=== PATIENT | female | born 1995 | race Caucasian/White ===

== ENCOUNTER 2023-07-02 20:56 | Emergency (ER) | payer MEDICAID, SELFPAY ==
[2023-07-02 20:56] VITALS: BP 138/103; PULSE 127; RESP 16; TEMP 36.9; O2SAT 97; BMI 39.9
--- NOTE | 2023-07-02 21:53 | EDS_ITS ---
HPI History of Present Illness Chief Complaint: General Illness Detail of Chief Complaint: Upper respiratory tract infectious symptoms and myalgias Informant: patient Onset/Context/Timing Onset: Today (Became flushed diaphoretic and was warm while at work) and Weeks Context: - (Varies) Timing: Continuous Quality: Upper respiratory infectious symptoms Location: Respiratory Current Severity: Mild Maximum Severity: Moderate Worsened by: Nothing Relieved by: nothing Associated Symptoms Associated Symptoms: Diaphoresis, flushed sensation, aches Narrative Narrative: Patient is a 28-year-old female who was diagnosed with COVID 2 weeks ago. She has been around her mother who was recently diagnosed with influenza. She has had persistent respiratory symptoms since onset of COVID. She now reports myalgias arthralgias, subjective fever with chills and being flushed and sweaty while at work. She was sent in by her boss. 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 She does complain of headache. She denies photophobia. She denies ear pain. She does endorse congestion and sore throat. She does have a cough which is nonproductive. She denies dyspnea, dyspnea on exertion. She denies abdominal pain, nausea, vomit or diarrhea. She denies dysuria, frequency, urgency or hematuria. She denies any joint swelling. She denies rash. Prior similar symptoms: Yes (Diagnosed with COVID 2 weeks ago. She is no longer in restriction) Recent Illness/Hospitalization: Yes [facility] Medical History Physical exam, pre-employment Allergy/AdvReac Type Severity Reaction Status Date / Time No Known Allergies Allergy Verified 07/02/23 20:59 Social History (Updated 07/02/23 @ 21:[address] Mohamud Castro MD) household members: spouse Smoking Status: Never smoker substance use type: does not use ROS ROS ED Constitutional Constitutional ED: Reports chills, fever(s), subjective and sweats; Denies weight loss Eyes Eyes: Denies blurry vision, change in vision or diplopia ENT ENT ED: Reports sore throat; Denies ear pain or rhinorrhea Cardiovascular Cardiovascular: Denies chest pain, orthopnea, palpitations or paroxysmal nocturnal dyspnea Respiratory/Chest Respiratory/Chest: Reports cough; Denies dyspnea, dyspnea on exertion, orthopnea, paroxysmal nocturnal dyspnea or sputum Gastrointestinal Gastrointestinal: Denies abdominal pain, diarrhea, nausea or vomiting Genitourinary Genitourinary ED: Denies dysuria, hematuria or urinary frequency Musculoskeletal Musculoskeletal: Reports myalgias; Denies arthralgias, back pain or neck pain Integumentary Denies rash Neurologic Neurologic: Reports weakness; Denies headache(s) Hematologic/Lymphatic Hematologic/Lymphatic: Reports systems reviewed and no addt'l complaints, except as documented EXAM Physical Exam Const Vital Signs: 07/02/23 20:56 07/02/23 20:56 Temperature 98.4 F Temperature Source Temporal Pulse Rate 127 H Respiratory Rate 16 Respiratory Effort Short of Breath Respiratory Pattern Normal Blood Pressure 138/103 H Blood Pressure Mean 114 Pulse Ox 97 Oxygen Delivery Method Room Air Positive well nourished, well developed and obese Constitutional Narrative: Patient appears ill but not toxic. General Appearance ED: well developed and pallor; Negative for cyanotic, diaphoretic or NAD Nutritional Appearance: obese HEENT Reports dry mucous membranes HEENT Narrative: Head is atraumatic and normocephalic. Ears normal. External auditory canal normal. TMs normal. Nares patent with clear discharge. Posterior pharynx out erythema or exudate. Mouth ED: Yes dry mucous membranes Mouth: dry mucous membranes Eyes PERRL and EOMs intact bilaterally General Eye ED: Negative for pale conjunctiva or scleral icterus Neck no lymphadenopathy, supple and no JVD Neck Narrative: Trachea is midline. There is no stridor. There is no dysphonia. Chest Wall palpation of chest normal Resp normal respiratory effort and clear to auscultation bilaterally Cardio regular rhythm, S1 normal heart sound, S2 normal heart sound and no murmurs Rate: tachycardic GI normal to inspection, nondistended, normoactive bowel sounds, non-tender, non- distended and no masses; Negative for hepatosplenomegaly Back/Spine no CVA tenderness Thoracic Spine / Upper Back: Negative for thoracic spinal tenderness Lumbar Spine / Lower Back: Negative for lumbar spinal tenderness Extremity normal to inspection Extremity Narrative: There is no asymmetry, swelling, discoloration, leg vein distention, palpable cords or tenderness along the distribution of the deep venous system. Neuro oriented x3, CN's II-XII intact bilaterally and no sensory deficits noted Sensorium / Orientation: alert Psych mental status grossly normal Skin no rashes or lesions noted, no wounds and skin turgor normal General Skin Exam: elasticity normal and pallor; Negative for jaundice MDM MDM MDM Narrative Medical decision making narrative: Patient appears ill and clinically is dehydrated. 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 IV fluids ordered. Basic metabolic panel was obtained to assess electrolytes, glucose, anion gap and renal function since she reports poor p.o. intake for the past week or so since she has been ill prior to this episode. History & Record Review Additional record(s) reviewed:: Prior labs (Preemployment TB testing) and No prior records Lab Data Attestation: I reviewed the patient's lab results. Lab results narrative: Basic metabolic panel is unremarkable. Sodium is 135. Labs: Laboratory Results - last 24 hr 07/02/23 22:00 Sodium 135 L Potassium 4.0 Chloride 107 Carbon Dioxide 24.0 Anion Gap 4 L BUN 14 Creatinine 0.76 Estim Creat Clear Calc 152.39 Est GFR (MDRD) Af Amer 118 Est GFR (MDRD) Non-Af 97 BUN/Creatinine Ratio 18.4 Glucose 99 Calcium 9.1 Treatment and Re-Evaluation :: Patient was reassessed at 0301. She had marked improvement after Toradol. Discharged home with work excuse. Discharge Plan Triage Chief Complaint: General Illness ED Provider: Mohamud Castro Dx/Rx/DC Orders Clinical Impression: COVID-19 virus infection, Myalgia due to viral infection Stand Alone Forms: ED Work / School Excuse Primary Care Provider: Sherwin Zarate Referrals: Sherwin Zarate DO [Primary Care Provider] - 1 Week if not improving Disposition Disposition: Home, Self Care
[2023-07-02] MEDS: 0.9% Normal Saline (1000mL) 1,000 ML 1000 ML IV (22:00)
[2023-07-02 22:24] LABS: Anion Gap 4 (5-15); BUN 14 mg/dL (7-18); BUN/Creat Ratio 18.4 RATIO (10-20); Calcium,Total 9.1 mg/dL (8.5-10.1); Chloride 107 mmol/L (98-107); Creatinine, Serum 0.76 mg/dL (0.55-1.02); EST Glomerular Filtration Rate 97 mL/min (>60); Est Glom Filt Rate - Afr Amer 118 mL/min (>60); Estimated Creatinine Clearance 152.39 ml/min; Glucose 99 mg/dL (74-106); Sodium Level 135 mmol/L (136-145)
--- OUTSIDE RECORDS SUMMARY | 2023-07-02 22:33 | XMS RPT_ITS | CCD ---
Author Name Unknown Address [address] [facility] [address] [place] [address] Organization [facility] Care Team Providers Care Coyote Hunter Name Role Phone Bethel Kent (Hist) Primary Care Provider AUGUSTA DUENAS DO Primary Care Physician Bethel Kent (Hist) Primary Care Provider 1( [phone] MANJULA TENORIO Attending Unavailable NATALY PRETTY Attending Unavailable AUGUSTA DUENAS DO Primary Care Unavailable AUGUSTA DUENAS DO Primary Care Unavailable AUGUSTA DUENAS DO Attending Unavailable AUGUSTA DUENAS DO Primary Care Unavailable AUGUSTA DUENAS DO Attending Unavailable AUGUSTA DUENAS DO Attending Unavailable AUGUSTA DUENAS DO Primary Care Unavailable AUGUSTA DUENAS DO Primary Care Unavailable AUGUSTA DUENAS DO Attending Unavailable AUGUSTA DUENAS DO Primary Care Unavailable AMBROSE BETTS DO Attending Unavailable AUGUSTA DUENAS DO Primary Care Unavailable TEE LYNNE DO Attending Unavailable AUGUSTA DUENAS DO Primary Care Unavailable NENA RAMIREZ, DR MCKINNEY Attending Unavailabl e Medications Current Medications Medication Drug Class(es) Dates Sig (Normalized) Sig (Original) acetaminophen 325 mg / HYDROcodone bitartrate 5 mg oral tablet (2 sources) Opioid Agonist Start: 10-10-2021 End: 10-13-2021 acetaminophen-hyd rocodone 325 mg-5 mg oral tablet Dose = 1 tab(s), Oral, q6h, PRN for pain, May take 1-2 tablets / dose, # 12 tab(s), 0 Refill(s), 112.6 Start Date: 10/13/21 Status: Ordered albuterol MDI (90 mcg/inh) CFC free inhalation aerosol (4 sources) Start: 12-07-2022 take 2 puff(s) by inhalation every four hours as needed albuterol MDI (90 mcg/inh) CFC free inhalation aerosol See Instructions, 2 puff(s) Inhalation q4h as needed, # 6.7 gram(s), 3 Refill(s), Pharmacy: [id number], 172.7, cm, 12/07/22 9:51:00 EDT, Height, kg, 12/07/22 9:51:00 EDT, Dosing Weight Start Date: 12/07/22 Status: Ordered Completed/Discontinued Medications Medication Drug Class(es) Dates Sig (Normalized) Sig (Original) [id number] 200 actuat albuterol 0.09 mg/actuat metered dose inhaler (1 source) beta2-Adrenergic Agonist Start: 12-07-2022 albuterol HFA (PROVENTIL HFA, VENTOLIN HFA) 90 mcg/actuation inhaler Inhale 2 Puffs as instructed. 0 12/07/2022 Active Problems Active Problems Problem Classification Problem Date Documented Date Episodic/Chronic Anxiety disorders (4 sources) Generalized anxiety disorder 10-09-2021 Chronic Asthma (4 sources) Asthma 03-21-2019 Chronic Biliary tract disease (5 sources) Calculus of bile duct; Translations: [Calculus of bile duct without cholangitis or cholecystitis without obstruction] Onset: 10-10-2021 Episodic Contraceptive and procreative management (4 sources) Oral contraception 09-14-2018 Episodic Genitourinary symptoms and ill-defined conditions (4 sources) Disorder of the urinary system; Translations: [Other symptoms and signs involving the genitourinary system] Onset: 12-30-2022 12-30-2022 Episodic Headache; including migraine (4 sources) 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 Headache; including migraine (4 sources) Headache 03-21-2019 Episodic Malaise and fatigue (4 sources) Fatigue 10-09-2021 Episodic Nutritional deficiencies (4 sources) Vitamin D deficiency 08-10-2019 Chronic Other female genital disorders (3 sources) Vaginal discharge 08-10-2019 Episodic Other nervous system disorders (4 sources) Poor concentration 03-21-2019 Chronic Other nutritional; endocrine; and metabolic disorders (4 sources) Body mass index 30+ - obesity 09-23-2017 Chronic Sprains and strains (1 source) Sprain of wrist and/or hand; Translations: [Sprain of unspecified part of unspecified wrist and hand, initial encounter] Onset: 02-11-2023 Episodic Thyroid disorders (6 sources) Hypothyroidism; Translations: [Hypothyroidism, unspecified] Onset: 03-16-2023 10-09-2021 Chronic Unclassified (1 source) Patient encounter status 03-06-2022 Urinary tract infections (4 sources) Urinary tract infectious disease 05-09-2019 Episodic Past or Other Problems Problem Classification Problem Date Documented Date Episodic/Chronic Abdominal pain (4 sources) Postoperative abdominal pain; Translations: [Pain in pelvis] Onset: 06-05-2022 10-23-2021 Episodic Results Test Name Value Interpretation Reference Range Facil ity Vital Signs Date Time Vital Sign Value Performing Clinician Facility 02-11-2023 00:08-[address] Pressure Cuff Size DR HANK BARRETT MD [facility] 02-11-2023 00:08-[address] HANK BARRETT MD [facility] 02-11-2023 00:08-[address] HANK BARRETT MD [facility] 02-11-2023 00:08-0400 Body height 172.[address] HANK BARRETT MD [facility] 02-11-2023 00:08-0400 Body temperature 97.7 [degF] DR HANK BARRETT MD [facility] 02-11-2023 00:08-0400 Body weight 127.[address] HANK BARRETT MD [facility] 02-11-2023 00:08-0400 Diastolic Blood Pressure Non-Invasive [address] HANK BARRETT MD [facility] 02-11-2023 00:08-0400 Heart rate 102 /min DR HANK BARRETT MD [facility] 02-11-2023 00:08-0400 Reason For Taking VItal Signs DR HANK BARRETT MD [facility] 02-11-2023 00:08-0400 Respiratory rate 20 /min DR HANK BARRETT MD [facility] 02-11-2023 00:08-0400 Systolic Blood Pressure Non-Invasive [address] HANK BARRETT MD [facility] 12-30-2022 16:50-0400 Body temperature 98.1 [degF] Manjula Tenorio DO Work Phone: [facility] 12-30-2022 16:50-0400 Body weight 123.65 kg Manjula Tenorio DO Work Phone: [facility] 12-30-2022 16:50-0400 Diastolic blood pressure 73 mm[Hg] Manjula Tenorio DO Work Phone: [facility] 12-30-2022 16:50-0400 Heart rate 92 /min Manjula Tenorio DO Work Phone: [facility] 12-30-2022 16:50-0400 Respiratory rate 18 /min Manjula Tenorio DO Work Phone: [facility] 12-30-2022 16:50-0400 SaO2% (BldA) [Mass fraction] 97 % Manjula Tenorio DO Work Phone: [facility] 12-30-2022 16:50-0400 Systolic blood pressure 144 mm[Hg] Manjula Tenorio DO Work Phone: [facility] 10-23-2021 02:21-0400 Body temperature 98.24 [degF] JAROCHO JALLOH MD [facility] 10-23-2021 02:21-0400 Body weight 110.6 kg JAROCHO JALLOH MD [facility] 10-23-2021 02:21-0400 Diastolic blood pressure 111 mm[Hg] JAROCHO JALLOH MD [facility] 10-23-2021 02:21-0400 Heart rate 88 /min JAROCHO JALLOH MD [facility] 10-23-2021 02:21-0400 Respiratory rate 16 /min JAROCHO JALLOH MD [facility] 10-23-2021 02:21-0400 Systolic blood pressure 164 mm[Hg] JAROCHO JALLOH MD [facility] 10-13-2021 13:05-0400 Body height 172.7 cm SARA BHAKTA MD [facility] 10-13-2021 13:05-0400 Body weight 112 kg SARA BHAKTA MD [facility] 10-13-2021 13:05-0400 Body weight 37.55 kg/m2 SARA BHAKTA MD [facility] 10-13-2021 13:05-0400 diastolic 7 mm[Hg] SARA BHAKTA MD [facility] 10-13-2021 13:05-0400 Heart rate 94 /min SARA BHAKTA MD [facility] 10-13-2021 13:05-0400 Respiratory rate 16 /min SARA BHAKTA MD [facility] 10-13-2021 13:05-0400 systolic 122 mm[Hg] SARA BHAKTA MD [facility] 10-10-2021 01:54-0400 Diastolic blood pressure 48 mm[Hg] CRYSTAL BARRETT MD [facility] 10-10-2021 01:54-0400 Heart rate 88 /min CRYSTAL BARRETT MD [facility] 10-10-2021 01:54-0400 Respiratory rate 20 /min CRYSTAL BARRETT MD [facility] 10-10-2021 01:54-0400 Systolic blood pressure 120 mm[Hg] CRYSTAL BARRETT MD [facility] 10-10-2021 00:35-0400 Diastolic blood pressure 78 mm[Hg] CRYSTAL BARRETT MD [facility] 10-10-2021 00:35-0400 Heart rate 96 /min CRYSTAL BARRETT MD [facility] 10-10-2021 00:35-0400 Respiratory rate 18 /min CRYSTAL BARRETT MD [facility] 10-10-2021 00:35-0400 Systolic blood pressure 128 mm[Hg] CRYSTAL BARRETT MD [facility] 10-09-2021 21:40-0400 Body temperature 98.6 [degF] CRYSTAL BARRETT MD [facility] 10-09-2021 21:40-0400 Body weight 112.6 kg CRYSTAL BARRETT MD [facility] 10-09-2021 21:40-0400 Diastolic blood pressure 90 mm[Hg] CRYSTAL BARRETT MD [facility] 10-09-2021 21:40-0400 Heart rate 110 /min CRYSTAL BARRETT MD [facility] 10-09-2021 21:40-0400 Respiratory rate 16 /min CRYSTAL BARRETT MD [facility] 10-09-2021 21:40-0400 Systolic blood pressure 143 mm[Hg] CRYSTAL BARRETT MD [facility] Encounters Encounter Date Encounter Type Care Provider Facility Start: 05-20-2023 End: 05-25-2023 ambulatory AUGUSTA DUENAS DO Facility:A Start: 04-27-2023 End: 04-27-2023 Emergency department patient visit AUGUSTA DUENAS DO Facility:A Start: 03-16-2023 End: 03-20-2023 ambulatory AUGUSTA MCCORMACKROBERT JANE Facility:A Start: 03-16-2023 End: 03-20-2023 Encounter for general adult medical examination without abnormal findings AUGUSTA DUENAS DO Facility:A Start: 02-11-2023 End: 02-11-2023 Emergency department patient visit AUGUSTA DUENAS DO Facility:B Start: 02-11-2023 End: 02-11-2023 Emergency department patient visit DR HANK BARRETT MD [facility] Start: 02-02-2023 End: 02-02-2023 Emergency department patient visit AUGUSTA DUENAS DO Facility:A Start: 12-30-2022 End: 12-30-2022 ambulatory MANJULA TENORIO Facility:[id number] Start: 12-30-2022 End: 12-30-2022 Patient encounter procedure Manjula Tenorio DO Work Phone: [facility] Procedures Date Procedure Procedure Detail Performing Clinician Start: 12-30-2022 Iadna chlamydia trac homatis amplified probe tq Manjula Tenorio DO Work Phone: Start: 12-30-2022 Urnls dip stick/tabl et rgnt auto w/o microscopy Manjula Tenorio DO Work Phone: Start: 10-16-2021 Cholecystectomy JAROCHO JALLOH MD Start: 09-23-2017 delivery only CRYSTAL BARRETT MD Plan of Treatment Date Care Activity Detail Author Start: 02-05-2023 Influenza vaccination INFLUENZA (#1) [facility] Start: 12-30-2022 End: 03-01-2023 TRICHOMONAS VAGINALIS NAAT [facility] Work Phone: Immunizations Immunization Date Immunization Notes Care Provider Fa cility 07-30-2021 SARS-CoV-2 (COVID-19 ) [id number] HANK BARRETT MD [facility] Payers Date Payer Category Payer Unknown [id number] 2020 Medicaid [employer] [employer] [place] [employer] [id number] 2020-Present [phone] [place] [id number] Medicaid [id number] 2020 Medicaid [id number] 1997 Unknown [id number] 1997 Unknown [id number] 1997 Unknown [id number] 1997 Unknown [id number] 1997 Unknown [id number] 1997 Unknown [id number] 1997 Unknown [id number] 1997 Unknown [id number] Unknown CLAUDIA RICHARDS PPO [id number] Effective for all dates [phone] [address] [place] [address] PPO [id number] Social History Date Type Detail Facility Tobacco smoking status UTIS Tobacco smoking consumption unknown [facility] Start: 1995 Sex Assigned At Not on file C [facility] Start: 02-03-2019 End: 12-30-2022 Tobacco smoking status Never smoked tobacco (finding) [facility] Sex Assigned At Female [facility] Start: 12-30-2022 Tobacco use and exposure Smokeless tobacco non-user [facility] Start: 12-30-2022 Alcohol intake Lifetime non-d juwan (finding) [facility] Start: 12-30-2022 History of Social function [facility] Start: 12-30-2022 Tobacco use panel [facility] Tobacco Nicotine Use: Va ping Product in Last 90 Days. [facility] Functional Status Date Assessment Result Facility 02-11-2023 Functional Status Independent Ericanicky salgado [facility] 02-11-2023 Functional Status Independent [facility] Ernesto salgado [facility] 10-10-2021 Functional Status [facility] naomi 10-10-2021 Functional Status [facility] naomi Mental Status Date Assessment Result Facility 02-11-2023 Mental Status Orientation Oriented x 4 [facility] 02-11-2023 Mental Status [facility] 10-10-2021 Mental Status [facility] 10-10-2021 Mental Status [facility] Clinical Notes 12-02-2020 to 02-11-2023 Manjula Tenorio, - 12/30/2022 5:27 PM CHELSEATPpaige Alcala MD - 06/07/2021 2:29 PM ESTBina Alcala MD - 04/01/2021 11:47 AM Tim Tenorio, - 12/02/2020 12:04 PM EDTLaboratoryLaboratory Note Date & Type Note Facility 02-11-2023 Hospital Discharge instructions Patient Education 02/11/2023 00:53:44 Hand Sprain Hand Sprain A sprain is a stretching or tearing of the ligaments that hold a joint together. There are no broken bones. Sprains take 3 to 6 weeks, or longer to heal. A sprained hand may be treated with a splint or elastic wrap for support. Home care Keep your arm elevated to reduce pain and swelling. This is most important during the first 48 hours. Apply an ice pack over the injured area for 15 to 20 minutes every 3 to 6 hours. You should do this for the first 24 to 48 hours. You can make an ice pack by filling a plastic bag that seals at the top with ice cubes and then wrapping it with a thin towel. Continue the use of ice packs for relief of pain and swelling as needed. As the ice melts, be careful to avoid getting any wrap or splint wet. After 48 hours, apply heat (warm shower or warm bath) for 15 to 20 minutes several times a day, or alternate ice and heat. You may use iwwb-ujc-abrpzvd pain medicine to control pain, unless another pain medicine was prescribed. If you have chronic liver or kidney disease or ever had a stomach ulcer or gastrointestinal bleeding, talk with your healthcare provider before using these medicines. If you were given a splint or elastic wrap, wear it until your pain improves. Follow-up care Follow up with your healthcare provider, or as advised. Sometimes fractures don t show up on the first X-ray. Bruises and sprains can sometimes hurt as much as a fracture. These injuries can take time to heal completely. If your symptoms don t improve or they get worse, talk with your healthcare provider. You may need a repeat X-ray or other tests. When to seek medical advice Call your healthcare provider right away if any of these occur: Pain or swelling increases Fingers or hand becomes cold, blue, numb, or tingly [phone] [place] [address], [place] [address]. All rights reserved. This information is not intended as a substitute for professional medical care. Always follow your healthcare professional's instructions. Follow Up Care 02/11/2023 00:06:39 With:SONALI DRIVER Address: [address] [place] [address] [address] [place] [address] Business (1) When:2-4 days Comments:Use Velcro wrist splint for comfort. Use ice, Tylenol, ibuprofen. Follow-up with orthopedic doctor, return if any worsening or concerning symptoms. With:AUGUSTA DUENAS Address: [address] [place] [address] Medicine [place], [place] [id number]- [phone] Business (1) When:2-4 days [facility] 02-11-2023 Note Discharge Instructions Thank you for allowing [facility] to assist you with your healthcare needs. The following is important discharge information regarding your hospital visit. Diagnosis from Today's Visit Hand sprain Wrist injury - Minor What to Do Next Instructions from Your Care Team Discharge Home Equipment - Ordered -- Splint, wrist & thumb Right, 99 month(s), 02/11/23 0:53:00 EDT Discharge Return to Work, School, or Sports (Return to Work, School, or Sports) - Ordered -- 02/11/23, May return to: work, Patient may return to work however needs to avoid repetitive movements of the right hand until cleared by orthopedics., 02/11/23 0:53:00 EDT Post Acute Orders No qualifying data available. You Need to Schedule the Following Appointments Follow Up with SONALI DRIVER When Within 2-4 days Why: Use Velcro wrist splint for comfort. Use ice, Tylenol, ibuprofen. Follow-up with orthopedic doctor, return if any worsening or concerning symptoms. Where: [address] [facility] [address] [address] [place] [address] Business (1) Follow Up with AUGUSTA DUENAS When Within 2-4 days Where: [address] [facility] [place] [address]- [phone] Business (1) Allergies NKA Medications Please ask your primary doctor or pharmacist before taking any other medication not listed, including over the counter drugs, herbal medications, vitamins and or supplements as they may interact with your home medications. What How Much When Why Instructions Last Dose Unchanged albuterol (albuterol MDI (90 mcg/ inh) CFC free inhalation aerosol) See instructions 2 puff(s) Inhalation q4h as needed Unchanged amphetamine-dextroamphetamine (Adderall 20 mg oral tablet) 1 tab(s) by mouth Once a day (in the morning) Poor concentration Duration: 30 Days Unchanged rimegepant (Nurtec ODT 75 mg oral tablet, disintegrating) 1 tab(s) by mouth Every other day Please take this list to your next doctor s visit. Bring all medications you take, including over the counter medications, herbals and other supplements with you to your doctor s visit. Patients and families are reminded to discard old lists and to update any records with all medication providers or retail pharmacies. Education Materials Hand Sprain A sprain is a stretching or tearing of the ligaments that hold a joint together. There are no broken bones. Sprains take 3 to 6 weeks, or longer to heal. A sprained hand may be treated with a splint or elastic wrap for support. Home care Keep your arm elevated to reduce pain and swelling. This is most important during the first 48 hours. Apply an ice pack over the injured area for 15 to 20 minutes every 3 to 6 hours. You should do this for the first 24 to 48 hours. You can make an ice pack by filling a plastic bag that seals at the top with ice cubes and then wrapping it with a thin towel. Continue the use of ice packs for relief of pain and swelling as needed. As the ice melts, be careful to avoid getting any wrap or splint wet. After 48 hours, apply heat (warm shower or warm bath) for 15 to 20 minutes several times a day, or alternate ice and heat. You may use olea-eed-pxtmbhf pain medicine to control pain, unless another pain medicine was prescribed. If you have chronic liver or kidney disease or ever had a stomach ulcer or gastrointestinal bleeding, talk with your healthcare provider before using these medicines. If you were given a splint or elastic wrap, wear it until your pain improves. Follow-up care Follow up with your healthcare provider, or as advised. Sometimes fractures don t show up on the first X-ray. Bruises and sprains can sometimes hurt as much as a fracture. These injuries can take time to heal completely. If your symptoms don t improve or they get worse, talk with your healthcare provider. You may need a repeat X-ray or other tests. When to seek medical advice Call your healthcare provider right away if any of these occur: Pain or swelling increases Fingers or hand becomes cold, blue, numb, or tingly [phone] [employer]. [address] [place] [address], [place] [address]. All rights reserved. This information is not intended as a substitute for professional medical care. Always follow your healthcare professional's instructions. Additional Information VACCINATE! IT SAVES LIVES! Members of the community who have not yet received the COVID-19 vaccine and would like to receive it can visit one of [facility] vaccine clinics. There are many vaccine clinic locations within the [facility]. For locations and available times, please visit www.gettheshot.coronavirus.[place].gov/. It is important to note that some COVID mobile vaccine clinics are held outdoors and may be canceled in rainy or stormy conditions. To learn more about pediatric vaccinations (ages 5-11), we invite you to visit the [facility] webpage. https://www.[email or web address].org/pages/1176-Rjhcr-W srrxzcdxce-Inuwoitoxh-Wwjso-Questions.html To learn more about the COVID-19 vaccine, we invite you to visit the CDC website for a list of frequently asked questions. https://www.cdc.gov/coronavirus/2019-ncov/vaccine s/faq.html [facility] Patient [facility] Access Instructions: Stay connected with your healthcare team and access your personal medical information anytime with the [facility] Patient Portal. If you would like a full copy of your medical records please contact the [facility] Medical Records Department Wednesday through Wednesday between 8a.m. and 4:30p.m. Please follow the directions below to access the portal: 1.Access the email account you provided upon registration to the [facility].2.Look for an invitation email from [facility].3.Open the email and access the invitation link: [facility].Fill in the required oleary to create your account. Sign into [email or web address] with your username and password that you created in the above steps to stay up to date. You can then view a summary of results, a summary of your visits, and the ability to download your summaries to your computer or send the information securely to a physician. Remember that your healthcare information is confidential, so carefully consider who you will allow to register on the [facility] Patient Portal for access to your information. You can also access the [facility] Patient Portal on the [employer] mi. Simply click on Health Records under Health Data and then click on the [employer] logo. HOW TO SAFELY DISPOSE OF PRESCRIPTION MEDICATIONS Please use one of the following methods to safely dispose of your unused medications. 1.Use a drug disposal kit: the drug disposal pouch allows you to safely discard your old and unused drugs. Ask your nurse to give you one when you are discharged.2.Visit a local take-back location: Many local pharmacies and police departments have programs that collect old and unwanted prescription drugs. Call your local pharmacy or go to http://bit.InstallFree/7A2Ww4w to find one close to you.3.Make use of household items: Use cat litter or old coffee grounds to dispose medications if other options are not available. Mix your drugs with these household products, seal them in an airtight container and throw it into the garbage. Call [facility]: [phone] to be sure your drugs can be disposed of in this way. Some medicines may require a different approach.4.Never flush your medications down the toilet. IF YOU HAVE BEEN PRESCRIBED AN OPIOIDS FOR PAIN If you have been prescribed an opioid (such as hydrocodone, oxycodone or morphine), it is critical to understand the possible side effects and risks of opioid pain medications. Even when taken as directed, opioids can have several side effects including: Tolerance, meaning you might need to take more of a medication for the same pain relief. Nausea, vomiting and/or constipation. Sleepiness, dizziness, dry mouth, confusion, depression or itching. Physical dependence, meaning you have withdrawal symptoms when a medication is stopped ? this can develop within a few days. KNOW YOUR RESPONSIBILITIES It is important to know exactly how much and how often to take the opioid pain medications you are prescribed. Never take opioids in higher amounts or more often than prescribed. Do not combine opioids with alcohol or other drugs that cause drowsiness, such as benzodiazepines, also known as benzos, including diazepam and alprazolam, muscle relaxants or sleep aids. Never sell or share prescription opioids. This is illegal. Store opioids in a secure place and out of reach of others (including children, family, friends and visitors). The last page(s) of this document has been signed and retained as a CHART COPY Signatures Patient Education Materials Hand Sprain Medication Leaflets My discharge plan and instructions have been reviewed and explained to me and IHARPAL BRANDI K understand my current condition and have read and understand these discharge instructions. I have received a written copy of the plan/instructions. If I have questions, I am aware that I should contact my doctor. 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 Patient states pain travels from hand up arm. pain FINDINGS: No acute fracture or dislocation is identified. The joint spaces appear maintained. No radiopaque foreign body. IMPRESSION: No acute fracture or dislocation. I have personally reviewed the images of this examination and agree with the resident's findings and interpretation. Interpreted by: Mike Canas MD Preliminary Report By: Celestine Bunn Electronically signed By Mike Canas MD Dictated Date: 02/11/2023 12:44:30 AM Prelim Date: 02/11/2023 12:47:23 AM Sign Date: 02/11/2023 12:52:58 AM Ordering Provider: [facility] 12-30-2022 Note HNO ID: [id number] Author: Manjula Tenorio, DO Service: ? Author Type: Physician Type: Progress Notes Filed: 12/30/2022 5:35 PM Note Text: Alber Rowan is a 27 year old FEMALE who presents with Urinary Problem (Burning with urination /3 days ago //States she would like tested for STD ) HPI History reviewed. No pertinent past medical history. There is no problem list on file for this patient. Current Outpatient Medications Medication Sig Dispense Refill albuterol HFA (PROVENTIL HFA, VENTOLIN HFA) 90 mcg/actuation inhaler Inhale 2 Puffs as instructed. dextroamphetamine-amphetamine (ADDERALL) 20 mg tablet TAKE 1 TABLET BY MOUTH IN THE MORNING FOR 30 DAYS rimegepant (NURTEC ODT) 75 mg disintegrating tablet DISSOLVE 1 TABLET BY MOUTH EVERY OTHER DAY FOR MIGRAINE PREVENTION azithromycin (ZITHROMAX) 500 mg tablet Take 2 tablets by mouth one time only for 1 dose. 2 tablet 0 metroNIDAZOLE (FLAGYL) 500 mg tablet Take 1 tablet by mouth twice daily for 7 days. 14 tablet 0 No current facility-administered medications for this visit. Social History Tobacco Use Smoking status: Never Smokeless tobacco: Never Vaping Use Vaping Use: current everyday user Substances: Nicotine, Flavoring Devices: Disposable, Pre-filled pod Substance Use Topics Alcohol use: Never Drug use: Never Alcohol Use: Never Tobacco Use: Never History reviewed. No pertinent family history. Review of Systems Genitourinary: Positive for dysuria. Patient states that it is possible that she could have a sexually transmitted infection and so she wants tested for that. All other systems reviewed and are negative. BP 144/73 Pulse 92 Temp (Src) 98.1 (Temporal) Resp 18 Wt 272 lb 9.6 oz (123.7kg) SpO2 97% LMP 12/05/2022 Physical Exam Vitals and nursing note reviewed. HENT: Head: Normocephalic. Cardiovascular: Rate and Rhythm: Normal rate and regular rhythm. Pulses: Normal pulses. Heart sounds: Normal heart sounds. Pulmonary: Effort: Pulmonary effort is normal. Breath sounds: Normal breath sounds. Abdominal: General: Abdomen is flat. Bowel sounds are normal. Palpations: Abdomen is soft. Genitourinary: Comments: Patient is tested for STI chlamydia, gonorrhea and trichomonas. Neurological: Mental Status: She is alert. ASSESSMENT/PLAN: 1. Urinary problem - ICD9: V47.4, ICD10: R39.89 (primary diagnosis) - URINALYSIS, DIPSTICK ONLY - GONORRHEA/CHLAMYDIA NAAT 2. Dysuria - ICD9: 788.1, ICD10: R30.0 - GONORRHEA/CHLAMYDIA NAAT - TRICHOMONAS VAGINALIS NAAT - AZITHROMYCIN 500 MG TABLET - METRONIDAZOLE 500 MG TABLET [facility] 12-30-2022 History of Present illness Narrative Formatting of this note is different fro m the original. Alber Rowan is a 27 year old FEMALE who presents with Urinary Problem (Burning with urination /3 days ago //States she would like tested for STD ) HPI History reviewed. No pertinent past medical history. There is no problem list on file for this patient. Current Outpatient Medications Medication Sig Dispense Refill albuterol HFA (PROVENTIL HFA, VENTOLIN HFA) 90 mcg/actuation inhaler Inhale 2 Puffs as instructed. dextroamphetamine-amphetamine (ADDERALL) 20 mg tablet TAKE 1 TABLET BY MOUTH IN THE MORNING FOR 30 DAYS rimegepant (NURTEC ODT) 75 mg disintegrating tablet DISSOLVE 1 TABLET BY MOUTH EVERY OTHER DAY FOR MIGRAINE PREVENTION azithromycin (ZITHROMAX) 500 mg tablet Take 2 tablets by mouth one time only for 1 dose. 2 tablet 0 metroNIDAZOLE (FLAGYL) 500 mg tablet Take 1 tablet by mouth twice daily for 7 days. 14 tablet 0 No current facility-administered medications for this visit. Social History Tobacco Use Smoking status: Never Smokeless tobacco: Never Vaping Use Vaping Use: current everyday user Substances: Nicotine, Flavoring Devices: Disposable, Pre-filled pod Substance Use Topics Alcohol use: Never Drug use: Never Alcohol Use: Never Tobacco Use: Never History reviewed. No pertinent family history. Review of Systems Genitourinary: Positive for dysuria. Patient states that it is possible that she could have a sexually transmitted infection and so she wants tested for that. All other systems reviewed and are negative. BP 144/73 Pulse 92 Temp (Src) 98.1 (Temporal) Resp 18 Wt 272 lb 9.6 oz (123.7kg) SpO2 97% LMP 12/05/2022 Physical Exam Vitals and nursing note reviewed. HENT: Head: Normocephalic. Cardiovascular: Rate and Rhythm: Normal rate and regular rhythm. Pulses: Normal pulses. Heart sounds: Normal heart sounds. Pulmonary: Effort: Pulmonary effort is normal. Breath sounds: Normal breath sounds. Abdominal: General: Abdomen is flat. Bowel sounds are normal. Palpations: Abdomen is soft. Genitourinary: Comments: Patient is tested for STI chlamydia, gonorrhea and trichomonas. Neurological: Mental Status: She is alert. ASSESSMENT/PLAN: 1. Urinary problem - ICD9: V47.4, ICD10: R39.89 (primary diagnosis) - URINALYSIS, DIPSTICK ONLY - GONORRHEA/CHLAMYDIA NAAT 2. Dysuria - ICD9: 788.1, ICD10: R30.0 - GONORRHEA/CHLAMYDIA NAAT - TRICHOMONAS VAGINALIS NAAT - AZITHROMYCIN 500 MG TABLET - METRONIDAZOLE 500 MG TABLET Manjula Tenorio documented in this encounter [facility] 10-10-2021 Hospital Discharge instructions Patient Education 10/10/2021 02:02:26 Gallstones with Biliary Colic Gallstones with Biliary Colic Your abdominal pain due to irritation and spasm of the gallbladder. This is called biliary colic. The gallbladder is a small sac under the liver, which stores and releases a bile. Bile is a fluid made in the liver that aids in the digestion of fat. A collection of crystals may form stones inside the gallbladder (gallstones). Gallstones can cause the gallbladder to spasm. If they block the duct out of the gallbladder, they can cause pain and even an infection. A number of factors increase the risk for having gallstones: Being female Being severely overweight (obese) Older age Losing or gaining weight quickly Eating a high-calorie diet Being Taking hormone therapy Having diabetes Home care Rest in bed. Drink only clear liquids until you feel better. You may have been prescribed medicine for pain or nausea. Take these as directed. Fat in your diet makes the gallbladder contract and may cause increased pain. Don't eat foods that are high in fat (such as full-fat dairy, fried foods, and fatty meats) for at least 2 days. If you are overweight, talk to your healthcare provider about losing weight. Follow-up care Follow up with your healthcare provider or as advised. There is a chance that you will have another episode of pain from your gallstones at some point. Removal of the gallbladder is an option to prevent this. Talk with your healthcare provider about your treatment options. When to seek medical advice Call your healthcare provider if any of the following occur: Worsening pain or pain lasting for longer than 6 hours Pain moving to the right lower belly Repeated vomiting Swollen belly Fever of 100.4 F (38 C) or higher, or as directed by your healthcare provider Very dark urine, light colored stools, or yellow color of the skin or eyes Chest, arm, back, neck or jaw pain [id number] [employer]. [address] [place] [address]. All rights reserved. This information is not intended as a substitute for professional medical care. Always follow your healthcare professional's instructions. Follow Up Care 10/09/2021 21:35:01 With:AUGUSTA DUENAS DO Address: [address] [place] [address] [place] [address] [phone] When:2-4 days Comments:Make an appointment in 2 to 4 days with your physician. Return if you are worse in any way. With:SARA BHAKTA MD, Surgery Address: [address] [facility] [address] [facility] [address] [facility] [place] [address]- [phone] When:2-4 days Comments:Make an appointment in 2 to 4 days with your physician. Return if you are worse in any way. [facility] 06-07-2021 History of Present illness Narrative DATE OF SERVICE: 06/07/2021 REASON FOR VISIT: Bilateral ear pain. HISTORY OF PRESENT ILLNESS: This is a 26-year-old female who presents with cough, congestion, sinus pressure for the last 2 days. Now she is having bilateral ear pain. The patient stated that she also has asthma and does not have any inhaler right now. She is feeling discomfort and tightness sometimes. No fever or chills. Review of other systems normal. ALLERGIES: NKA. MEDICATIONS: 1. Migraine medicine. 2. Inhaler, which she does not have right now. PHYSICAL EXAMINATION: She is awake, alert, not in distress. No dyspnea. Temperature 97.9, blood pressure 154/92, pulse 107, respiratory rate 20, pulse oximetry 98% room air, pain score 6/10. HEENT: Remarkable for moderate nasal congestion. Throat was not injected. Right ear was normal. Left ear tympanic membrane was red. Chest clear to auscultation. No crackles, wheezing, or rhonchi. Heart: Regular rate and rhythm. ASSESSMENT: 1. Upper Respiratory tract infection with left otitis media. 2. Asthma. PLAN: Clinical findings were discussed with the patient in detail. I gave her Amoxicillin 875 mg twice a day for 10 days with no refill and ProAir inhaler to use as per directions. She should drink a lot of fluid. Avyc-zau-hnpwcqg medicine as needed. She should follow with her doctor for further evaluation and care, and also reminded her that for future refill of inhaler she should get from her doctor. She understands and agrees. She was given a slip that she was seen here today. Bina Alcala MD PP/[id number] [employer] File#: [id number] END OF DOCUMENT / CHANGE LOG FOLLOWS Last Edited By Sury. Signed By Bina Alcala MD #PAWPR Bina Alcala MD #PAWPR on 06/12/2021 16:22 ET on 06/12/2021 16:22 ET Revision Number - 2 ^^^ Verified/Reviewed by 06/12/21 1622 NATALIA [facility] PATIENT NAME: ALBER ROWAN [address] [facility] [address] MEDICAL REC #: [id number] [place] [address] [facility] REPORT STATCARE PHYSICIAN documented in this encounter [facility] 04-01-2021 History of Present illness Narrative DATE OF SERVICE: 03/29/2021 REASON OF VISIT: Ear pain. HISTORY OF PRESENT ILLNESS: This is a 26-year-old female who presented with ear pain for the last 2 days. It is more on the left side than the right side. She also has some congestion and drainage. No fever or chills. REVIEW OF OTHER SYSTEMS: Normal. ALLERGIES: NKA. MEDICATIONS: Headache medicine. PHYSICAL EXAMINATION: She is awake, alert not in distress. No dyspnea. Temperature 97.9, blood pressure 152/95, pulse 122, respiratory rate 30, pulse oximetry 97% on room air, pain score 6/10. HEENT: Remarkable for mild nasal congestion. Throat is not injected. Her right ear is normal. Left ear, tympanic membrane is slightly bulging and slightly red. Chest: Clear to auscultate. Heart: Regular rate and rhythm. ASSESSMENT: Left otitis media with upper respiratory infection. PLAN: Clinical findings were discussed with the patient in detail. I gave her amoxicillin 875 mg twice a day for 10 days with no refill. She should use cppa-lhj-[id number] symptom-relief medicine as needed. Drink a lot of fluid. Tylenol or Motrin as needed and follow up with her doctor. Patient understands and agrees. Bina Alcala MD /[id number] [facility] File#: [id number] END OF DOCUMENT / CHANGE LOG FOLLOWS Last Edited By Elec. Signed By Bina Alcala MD #PAWPR Bina Alcala MD #PAWPR on 04/10/2021 14:26 ET on 04/10/2021 14:26 ET Revision Number - 2 ^^^ Verified/Reviewed by 04/10/21 1426 NATALIA [facility] PATIENT NAME: ALBER ROWAN [address] [facility] [address] MEDICAL REC #: [id number] [place] [address] [facility] REPORT STATCARE PHYSICIAN documented in this encounter [facility] 12-02-2020 History of Present illness Narrative DATE OF SERVICE: 11/29/2020 HISTORY OF PRESENT ILLNESS: This 25-year-old female presents today stating that she thinks she has an STD. She said that her boyfriend suspected I guess that he had one, and she started having burning with urination, and so she suspects that she has an STD. She said she has had chlamydia and gonorrhea before when she was and that it feels about the same way. ALLERGIES: No known drug allergies. PAST MEDICAL HISTORY: Positive for asthma, ADD, abdominal surgery, x2. Nonsmoker, nondrinker. FAMILY HISTORY: Positive for heart disease, high blood pressure. SOCIAL HISTORY: Unremarkable. PHYSICAL EXAMINATION: Weight 261 pounds. Blood pressure 140/91. Pulse 107. Respirations 14. Temperature 97.2. Pulse oximetry is 98. This is a 25-year-old female. Heart: Regular rate and rhythm. Lungs are clear. Abdomen: Soft. Positive bowel sounds. Nontender. No organomegaly. No rebound or guarding. Extremities and neurologic were grossly intact. We got a urinalysis for chlamydia, GC, and trichomonas, and these will be forwarded to the laboratory. IMPRESSION: Exposure to sexually transmitted disease. PLAN: The patient is placed on Rocephin 250 IM, was given here, and then Zithromax 1 gram, Cipro 500 twice a day, and Diflucan. Rest, fluids. We will call tomorrow with the results, but she will already have been treated. Now, at this point, I told the patient to make sure that if she has contact with this boy again that she uses protection to protect herself, and she said that she will have contact with him again because it is her boyfriend and she does not know that she will wear protection, but she is not thinking very well I think, but I tried to inform her that she needs to protect herself, so hopefully she will. Manjula Tenorio DO /[id number] [facility] File#: [id number] END OF DOCUMENT / CHANGE LOG FOLLOWS Last Edited By Elec. Signed By Manjula Tenorio DO #Manjula Gonzales DO #[email or web address] on 12/04/2020 13:13 ET on 12/04/2020 13:13 ET Revision Number - 2 ^^^ Verified/Reviewed by 12/04/20 4559 JULIO [facility] PATIENT NAME: ALBER ROWAN [address] [address] MEDICAL REC #: [id number] [place] [address] [facility] REPORT STATCARE PHYSICIAN documented in this encounter [facility] Evaluation + Plan note Future Appointments Appointment Date:11/13/2021 01:30:00 PM Scheduled Provider:AUGUSTA DUENAS DO Location: [facility] Appointment Type:PC OV Future Scheduled TestsHepatic Function Panel 10/09/21Lipase Level 10/09/21 [facility] Evaluation + Plan note Future Appointments Appointment Date:10/24/2021 11:30:00 AM Scheduled Provider:AUGUSTA DUENAS DO Location: [facility] Appointment Type:PC OV Appointment Date:11/06/2021 02:40:00 PM Scheduled Provider:SARA BHAKTA MD Location:[facility] Appointment Type:GS OV Post Op Appointment Date:11/13/2021 01:30:00 PM Scheduled Provider:AUGUSTA DUENAS DO Location: [facility] Appointment Type:PC OV Future Scheduled TestsHepatic Function Panel 10/09/21Lipase Level 10/09/21 [facility] Evaluation + Plan note Future Appointments Appointment Date:03/12/2023 11:30:00 AM Scheduled Provider:AUGUSTA DUENAS DO Location: [facility] Appointment Type:PC Wellness Annual w/Labs [facility] No data available for this section [facility] Hospital Discharge instructions No data available for this section [facility] Progress note No data available for this section [facility] Summary Purpose Family History No Family History Records FoundNo Family History Records Found No data available for this section No Family History Records Found Advance Directives No Advanced Directives Records FoundNo Advanced Directives Records FoundNo Advanced Directives Records Found Additional Source Comments Source Comments (unrecognize d section and content) In the event this informatio n is protected by the Federal Confidentiality of Alcohol and Drug Abuse Patient Records regulations: The Federal rules restrict any use of the information to criminally investigate or prosecute any alcohol or drug abuse patient.[facility] the event this information is protected by the Federal Confidentiality of Alcohol and Drug Abuse Patient Records regulations: The Federal rules restrict any use of the information to criminally investigate or prosecute any alcohol or drug abuse patient.[facility] the event this information is protected by the Federal Confidentiality of Alcohol and Drug Abuse Patient Records regulations: The Federal rules restrict any use of the information to criminally investigate or prosecute any alcohol or drug abuse patient.[facility] the event this information is protected by the Federal Confidentiality of Alcohol and Drug Abuse Patient Records regulations: The Federal rules restrict any use of the information to criminally investigate or prosecute any alcohol or drug abuse patient.[facility] the event this information is protected by the Federal Confidentiality of Alcohol and Drug Abuse Patient Records regulations: The Federal rules restrict any use of the information to criminally investigate or prosecute any alcohol or drug abuse patient.[facility] the event this information is protected by the Federal Confidentiality of Alcohol and Drug Abuse Patient Records regulations: The Federal rules restrict any use of the information to criminally investigate or prosecute any alcohol or drug abuse patient.[facility] Care Teams (unrecognized sec tion and content) Coyote Hunter Relationship Specialty Start Date End Date Bethel Kent (Hist) [address] [place] [address] PCP - General 09/14/00 Coyote Hunter Relationship Specialty Start Date End Date Bethel Kent (Hist) [address] [facility] [place] [address] PCP - General 09/14/00 INFORMATION SOURCE (unrecogn ized section and content) DATE CREATED AUTHOR AUTHOR'S ORGANIZ ATION 01/01/2023 [facility] nter DATE CREATED AUTHOR AUTHOR'S ORGANIZ ATION 05/26/2023 [facility] ([place]) Reason for Visit (unrecogniz ed section and content) FOR RECORDS PERTAINING TO PATIENTS WHO ARE OR HAVE BEEN ENROLLED IN A CHEMICAL DEPENDENCY/SUBSTANCEABUSE PROGRAM, SOME INFORMATION MAY BE OMITTED. This clinical summary was aggregated from multiple sources. Caution should be exercised in using it in the provision of clinical care. This summary normalizes information from multiple sources, and as a consequence, information in this document may materially change the coding, format and clinical context of patient data. In addition, data may be omitted in some cases. CLINICAL DECISIONS SHOULD BE BASED ON THE PRIMARY CLINICAL RECORDS. [facility] [employer] [facility]. provides no warranty or guarantee of the accuracy or completeness of information in this document.
[2023-07-02 22:56] VITALS: PULSE 89; RESP 12; O2SAT 98
[2023-07-03] MEDS: Ketorolac 15 MG/ML Vial IV (01:24)
[2023-07-03 02:56] VITALS: PULSE 62; RESP 14; O2SAT 97
== END 2023-07-03 03:35 | disposition home or self-care (01) ==
PROVIDERS: Emergency Provider Emergency Medicine; PCP Family Medicine; Visit Provider Emergency Medicine
DX: U07.1 COVID-19 (principal); E66.9 Obesity, unspecified
CPT/HCPCS: 80048; 87631; 96361; 96374; 99283; J7030; A4216

== ENCOUNTER 2024-01-11 11:58 | Day surgery (SDC) | payer MEDICAID, SELFPAY ==
--- NOTE | 2024-01-11 12:16 | PCM.PRE.AN2 ---
ASA Classification* ASA Classification ASA Classification: 3 Assessment & Plan Anesthesia* Anesthesia Assessment Anesthesia Assessment: Discussed sedation and/or anesthesia options, risks, benefits, and alternatives with patient/parents/legal guardian/POA. Questions invited. The patient/parents/legal guardian/POA seems to understand and agrees to proceed with anesthesia plan. Reviewed the physical assessment, medical history, allergy history and patient home medications list prior to surgery/procedure/anesthetic and documented any changes. Performed airway and anesthesia risk assessments. 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 When Was Last Pacemaker Check QUESTION #4 FULL TEXT: You/Your Family Experience fever (hyperthermia) with Anesthesia Last Oral Intake Last Oral intake: Last Oral Intake NPO since Meds taken in AM with sips of water? Meds patient instructed to take am of surgery PONV PONV - heavy equipment service manager: PONV - heavy equipment service manager Female Yes 01/05/24 13:41 HX of Motion Sickness No 01/05/24 13:41 HX of N/V After Surgery No 01/05/24 13:41 Non-Smoker No 01/05/24 13:41 Duration of Surgery greater No 01/05/24 13:41 than 60 minutes Number of Risk Factors 1 01/05/24 13:41 PONV Score Low Risk 01/05/24 13:41 Height & Weight Height & Weight: Anesthesia: Height & Weight Height 5 ft 8 in 07/02/23 20:56 Respiratory Assessment Respiratory Assessment - heavy equipment service manager: Respiratory Tract Infection Hx - heavy equipment service manager Hx Respiratory Tract Infection No 01/05/24 13:41 STOP Sleep Apnea STOP Sleep Apnea - heavy equipment service manager: STOP Sleep Apnea - heavy equipment service manager Hx Hypertension No 01/05/24 13:41 Hx Sleep Apnea No 01/05/24 13:41 CPAP BIPAP Do you snore loudly (louder No 01/05/24 13:41 than talking or can be heard Do you often feel tired/ No 01/05/24 13:41 fatigued/ sleepy during daytime? Has anyone observed you stop No 01/05/24 13:41 breathing during sleep? STOP Results Negative 01/05/24 13:41 QUESTION #5 FULL TEXT : Do you snore loudly (louder than talking or can be heard through closed doors)? Tobacco Use History Tobacco Use History - heavy equipment service manager: Tobacco Use History - heavy equipment service manager Tobacco Use Smoking Status Current every day smoker 01/05/24 13:41 Hx Tobacco Use Yes 01/05/24 13:41 Years Smoking Packs Smoked per Day Smoking Cessation Date was within the last 15 years Hx Smoking Cessation Date Hx Smoking Cessation Counseling Hematologic Medial History Hematologic Hx - heavy equipment service manager: Hematologic Medical Hx - skull grinder Hx of Blood Transfusion No 01/05/24 13:41 Hx of Transfusion in last 3 No 01/05/24 13:41 Months Date of Last Transfusion (if within last 3 months) Ever experience any problems No 01/05/24 13:41 with transfusion(s)? Specify any problems Hx of Preganancy in last 3 No 01/05/24 13:41 Months Nurse Filling Out Transfusion [id number] 01/05/24 13:41 & Questions: Date: 01/05/24 01/05/24 13:41 Time: 13:46 01/05/24 13:41 Patient unable to answer at this time (ie. confused, unrespo /Reproduction History /Reproductive History - heavy equipment service manager: /Reproductive Hx- heavy equipment service manager Hx Now Gestational Age (in weeks): EDC: Hx Hx Para Hx Section SAB No 07/02/23 20:56 Active Medications Active Medications: Current Medications Generic Name Dose Route Start Last Admin Trade Name Freq PRN Reason Stop Dose Admin Lactated Ringer's 1,000 mls @ 15 mls/hr 01/11/24 12:15 IV .Q48H ANDREA PFSH Medical History Wears glasses Thyroid disease Easy bruising Back pain Smoker Shortness of breath on exertion Asthma Physical exam, pre-employment Home Medications ?Medication ?Instructions ?Recorded ?Last Taken ?Type dextroamphetamine-amphetamine 20 20 mg PO DAILY 12/29/23 Unknown History mg tablet (Adderall) levothyroxine 88 mcg capsule 88 mcg PO DAILY 12/29/23 Unknown History albuterol sulfate 90 mcg/actuation 2 puff inhalation Q4H PRN PRN 01/05/24 Unknown History aerosol inhaler shortness of breath or wheezing bisacodyl 5 mg tablet,delayed 20 mg (4 x 5 mg) PO ONCE #4 tabs 01/05/24 Unknown Rx release (Dulcolax (bisacodyl)) polyethylene glycol 3350 17 238 g PO ONCE #238 grams 01/05/24 Unknown Rx gram/dose oral powder (Miralax) Allergy/AdvReac Type Severity Reaction Status Date / Time No Known Allergies Allergy Verified 01/05/24 13:41 Social History household members: spouse Smoking Status: Current every day smoker tobacco type: e-cigarettes substance use type: does not use Review of Systems (Anesthesia) ROS Narrative System reviewed and no additional complaints, except as documented.
[2024-01-11 12:35] VITALS: BP 134/90; PULSE 89; RESP 18; TEMP 36.6; O2SAT 98; BMI 38.0
[2024-01-11] MEDS: Lactated Ringers 1,000 ML 15 ML IV (12:38)
--- NOTE | 2024-01-11 13:15 | COLBX_PTH ---
PATIENT: ALBER ROWAN LOC: EN U#:[id number] AGE/SX: 28/F ROOM: RE01/11/[address]: Dr. Anup Jeff DO : 1995 BED: DIS: 01/11/2024 SPEC #: [id number] RECD: 01/11/24 16:14 STATUS: DINORA IVAN #: [id number] NOAH: 01/11/24 13:[address]: Anup Jeff DEPT: SURGICAL PATHOLOGY RECD BY: Opal De Jesus ENTERED: 01/12/24 07:30 SP TYPE: COLON BX OTHR DR: Dr. Sherwin Zarate DO Tissues: A - Duodenum, NOS B - Ileum, NOS C - COLON BIOPSY Procedures: Surgery Specimen Level IV HEADER OPERATION: Colonoscopy with biopsy, EGD with biopsy PRE-OP DIAGNOSIS: Diarrhea TISSUE SUBMITTED: A- Duodenal biopsy, B- Terminal ileum, C- Random colon biopsy MICROSCOPIC DIAGNOSIS A. Duodenum, biopsy: Fragments of gastric mucosa and duodenal mucosa with mild chronic inflammation. See comment. B. Terminal ileum, biopsy: No pathologic change. C. Colon, random biopsy: No pathologic change. UBALDO/ 01/13/2024 COMMENT A. Gastric metaplasia in duodenum cannot be entirely excluded. Clinical correlation is necessary. MICROSCOPIC DESCRIPTION Slides are reviewed. GROSS DESCRIPTION A. Received in fixative is one container labeled with the patient's name and designated Duodenum biopsy. The specimen consists of multiple irregular fragments of light landry soft tissue that in aggregate measure 1.4 x 0.3 x 0.1 cm. The specimen is totally submitted in one cassette. B. Received in fixative is one container labeled with the patient's name and designated Terminal ileum. The specimen consists of multiple irregular fragments of light landry soft tissue that in aggregate measure 1.0 x 0.5 x 0.1 cm. The specimen is totally submitted in one cassette. C. Received in fixative is one container labeled with the patient's name and designated Random colon biopsy. The specimen consists of multiple irregular fragments of light landry soft tissue that in aggregate measure 2.0 x 0.5 x 0.1 cm. The specimen is totally submitted in one cassette. CASA/ 01/12/2024 TC:3 CPT:04721x6
--- NOTE | 2024-01-11 14:12 | PCM.HP.BLA ---
History and Physical Date of Admission: 01/11/24 8 F who presents to the office today for initial consult. *[facility] established 7.24 pt reports that she was hospitalized at an outside facility last week for abd pain. Was diagnosed with a UTI. Pt reports diarrhea for the past year and that she will have a bm 6+ times a day; denies blood in the stool. ROS Const Constitutional: Positive for headache(s) and weight change (weight loss); No fatigue or fever(s) ENT ENT: Positive for headache(s); No difficulty swallowing Gastro GI: Positive for abdominal pain, bloating, change in bowel habits, diarrhea, excessive flatus and nausea/dyspepsia; No belching, change in stool character, coffee ground emesis, constipation, cramping, heartburn, difficulty swallowing, feeling full early, incontinent of stools, Vomiting blood/hematemesis, Blood in stool, loose stools, Black,tarry stools, pain with swallowing, vomiting or other Musc Musculoskeletal: Positive for back pain; No joint pain Skin Skin: No yellowing of the eye or itchy eyes Neuro Neurology: Positive for headache(s) Psych Psychiatric: Positive for anxiety and No depression Endo Endocrine: Positive for weight change (weight loss); No fatigue Aller/Imm Allergy/Immunologic: No itchy eyes Artemio/Lymp Hematologic/Lymphatic: Positive for easy bruising; No easy bleeding Exam Const General: cooperative and comfortable Nutritional Appearance: average body habitus and well nourished [facility] Head: normal to inspection Ears: hearing grossly normal bilaterally Nose: external nose normal Face and sinus: normal facial exam Mouth: oral mucosae normal Throat: posterior oropharynx normal Eyes General: appearance normal, both eyes and all related structures Neck Neck: normal visual inspection Chest Chest palpation & inspection: normal inspection of the chest and normal palpation of entire chest wall Resp Effort & Inspection: normal respiratory effort Auscultation: Bilateral: Clear to Auscultation Cardio Palpation: normal PMI Rate: regular rate Rhythm: regular rhythm GI Inspection: normal to inspection Auscultation: normal bowel sounds Percussion: normal to percussion Palpation: no hepatosplenomegaly Skin General: no rashes or lesions noted Neuro General: patient alert Extrem General: normal to inspection Psych Affect: normal affect Assessment and Plan Assessment and Plan (1) Diarrhea: Status: Acute Plan: 28-year-old with a history of chronic abdominal pain thought to be secondary to acute cholecystitis status postcholecystectomy several years ago. She has been having intermittent abdominal pain associated with nausea, vomiting and diarrhea. She recently was admitted at outside institution for urinary tract infection that originally thought was acute appendicitis versus infection in the cervix. She was treated with antibiotics for several days she comes in for the evaluation of her abdominal pain and diarrhea. She was treated with nitrofurantoin and has been treated with that medication in the past. She has no known drug allergies. She states that she cannot eat normal foods and only eats a bland diet. She has no family history of inflammatory bowel disease. She denies any rash. She denies any arthralgias. She denies any vision changes. I do not have any imaging of her abdomen pelvis during this visit. She does have a past medical history of ADHD and hypothyroidism. Recommendations: -EGD and colonoscopy to evaluate the upper and lower GI tract for inflammatory bowel disease, gastritis, hiatal hernia, inflammatory bowel disease. -Biochemical workup for inflammatory bowel disease along with urine culture to make sure she cleared E. coli -Imaging with a functional image of her stomach to see what happens when she eats. We will order gastric emptying study. -All questions answered and asked from the patient. Orders: Orders Urinalysis, Complete Today R19.7 - Diarrhea, unspecified Culture, Urine Today R19.7 - Diarrhea, unspecified Celiac Disease Profile Today R19.7 - Diarrhea, unspecified CRP Today R19.7 - Diarrhea, unspecified Erythrocyte Sed Rate Today R19.7 - Diarrhea, unspecified CBC W/Diff, Automated Today R19.7 - Diarrhea, unspecified Allergen, Food Profile 14 Today R19.7 - Diarrhea, unspecified GUS Comprehensive Panel Today R19.7 - Diarrhea, unspecified ANCA Today R19.7 - Diarrhea, unspecified Calprotectin, Stool Today R19.7 - Diarrhea, unspecified ENTERIC PATHOGEN PANEL STOOL Today K58.9 - Irritable bowel syndrome without diarrhea, R19.7 - Diarrhea, unspecified LDH Today R19.7 - Diarrhea, unspecified Pancreatic Elastase, Fecal Today R19.7 - Diarrhea, unspecified Ova and Parasites [id number] Today K58.9 - Irritable bowel syndrome without diarrhea, R19.7 - Diarrhea, unspecified Giardia Lamblia, Stool EIA Today R19.7 - Diarrhea, unspecified IBD Expanded Profile Today R19.7 - Diarrhea, unspecified YULISA + Protein Elect, Serum Today R19.7 - Diarrhea, unspecified Thyroid Stim Hormone (TSH) Today R19.7 - Diarrhea, unspecified T4 Free Direct Today R19.7 - Diarrhea, unspecified Stool Lactoferrin/WBC Today K58.9 - Irritable bowel syndrome without diarrhea, R19.7 - Diarrhea, unspecified Quantiferon TB-Gold+ Today R19.7 - Diarrhea, unspecified Gastrin, Serum Today R19.7 - Diarrhea, unspecified Chromogranin A Today R19.7 - Diarrhea, unspecified Gastric Emptying Study Today R19.7 - Diarrhea, unspecified I have examined the patient and the H&P has been reviewed. There are no clinical changes since date of exam.
--- NOTE | 2024-01-11 14:39 | OP.CCLET_ITS ---
01/11/2024 Sherwin Zarate Re : Upper GI endoscopy procedure for Ofelia Nguyễn Dear Elliot This procedure was performed on Thursday, January 11, 2024. My impressions and recommendations are as follows: Impressions : - Normal esophagus. - Erythematous mucosa in the gastric body. Biopsied. - Erythematous duodenopathy. Biopsied. Recommendations : - Discharge patient to home. - Resume previous diet. - Continue present medications. - Await pathology results. My findings are described in the full procedure note, which is enclosed. If I can be of further assistance, please feel free to contact me at . Sincerely, Anup Jeff, 01/11/2024 2:38:36 PM This report has been signed electronically.
--- NOTE | 2024-01-11 14:39 | OP.EGD_ITS ---
Patient Name: Ofelia Nguyễn Procedure Date: 01/11/2024 2:06 PM Date of : 1995 Age: 28 Procedure: Upper GI endoscopy Indications: Epigastric abdominal pain Providers: Anup Jeff DO Referring MD: Anup Jeff DO Medicines: Monitored Anesthesia Care Patient Profile: This is a 28 year old female. Refer to note in patient chart for documentation of history and physical. Patient has symptoms of chronic global abdominal pain. Complications: No immediate complications. Procedure: Pre-Anesthesia Assessment: - Prior to the procedure, a History and Physical was performed, and patient medications and allergies were reviewed. The patient is competent. The risks and benefits of the procedure and the sedation options and risks were discussed with the patient. All questions were answered and informed consent was obtained. Patient identification and proposed procedure were verified by the physician in the pre-procedure area. Mental Status Examination: alert and oriented. Airway Examination: normal oropharyngeal airway and neck mobility. Respiratory Examination: clear to auscultation. CV Examination: normal. Prophylactic Antibiotics: The patient does not require prophylactic antibiotics. Prior Anticoagulants: The patient has taken no anticoagulant or antiplatelet agents. ASA Grade Assessment: II - A patient with mild systemic disease. After reviewing the risks and benefits, the patient was deemed in satisfactory condition to undergo the procedure. The anesthesia plan was to use monitored anesthesia care (MAC). Immediately prior to administration of medications, the patient was re-assessed for adequacy to receive sedatives. The heart rate, respiratory rate, oxygen saturations, blood pressure, adequacy of pulmonary ventilation, and response to care were monitored throughout the procedure. The physical status of the patient was re-assessed after the procedure. After obtaining informed consent, the endoscope was passed under direct vision. Throughout the procedure, the patient's blood pressure, pulse, and oxygen saturations were monitored continuously. The Colonoscope was introduced through the mouth, and advanced to the second part of duodenum. The upper GI endoscopy was accomplished without difficulty. The patient tolerated the procedure well. Scope In: 2:16:09 PM Scope Out: 2:19:33 PM Total Procedure Duration Time 0 hours 3 minutes 24 seconds Findings: The examined esophagus was normal. Patchy mildly erythematous mucosa without bleeding was found in the gastric body. Biopsies were taken with a cold forceps for histology. Verification of patient identification for the specimen was done. Estimated blood loss was minimal. Biopsies were taken with a cold forceps for Helicobacter pylori testing. Verification of patient identification for the specimen was done. Estimated blood loss was minimal. Patchy mildly erythematous mucosa without active bleeding and with no stigmata of bleeding was found in the duodenal bulb. Biopsies were taken with a cold forceps for histology. Verification of patient identification for the specimen was done. Estimated blood loss was minimal. Impression: - Normal esophagus. - Erythematous mucosa in the gastric body. Biopsied. - Erythematous duodenopathy. Biopsied. Recommendation: - Discharge patient to home. - Resume previous diet. - Continue present medications. - Await pathology results. Procedure Code(s): --- Professional --- 48443, Esophagogastroduodenoscopy, flexible, transoral; with biopsy, single or multiple CPT copyright 2021 [employer]. All rights reserved. The codes documented in this report are preliminary and upon him coder review may be revised to meet current compliance requirements. Anup Jeff DO 01/11/2024 2:38:36 PM This report has been signed electronically. Number of Addenda: 0 Note Initiated On: 01/11/2024 2:06 PM
[2024-01-11 14:40] VITALS: BP 119/76; BP 134/90; PULSE 82; RESP 16; TEMP 36.2; O2SAT 99
--- NOTE | 2024-01-11 14:40 | PCM.POST.ANE ---
Anesthesia: Postop Eval I Current Vital Signs Temperature: 97.1 F Pulse Rate: 82 Blood Pressure: 119/76 Respiratory Rate: 16 Pulse Ox: 100 Oxygen Delivery Method: Room Air Assessment Airway patent: Yes Spontaneous unlabored respirations: Yes Mental status: Asleep nausea: No Vomiting: No Anesthesia Complication: No Fluid Hydration Crystalloid volume administer (ml): 800 Total IV fluid infused: 800 Progress Note Anesthesia document: Postop Eval 1 completed: Yes
[2024-01-11 14:41] VITALS: BP 119/76; PULSE 82; RESP 16; TEMP 36.2; O2SAT 100
--- NOTE | 2024-01-11 14:43 | OP.COLON_ITS ---
Patient Name: Ofelia Nguyễn Procedure Date: 01/11/2024 2:19 PM Date of : 1995 Age: 28 Procedure: Colonoscopy Indications: Clinically significant diarrhea of unexplained origin Providers: Anup Jeff DO Referring MD: Anup Jeff DO Medicines: Monitored Anesthesia Care Patient Profile: This is a 28 year old female. Refer to note in patient chart for documentation of history and physical. Patient has symptoms of chronic global abdominal pain. Last Colonoscopy: none. The patient's first colonoscopy is today. Complications: No immediate complications. Procedure: Pre-Anesthesia Assessment: - Prior to the procedure, a History and Physical was performed, and patient medications and allergies were reviewed. The patient is competent. The risks and benefits of the procedure and the sedation options and risks were discussed with the patient. All questions were answered and informed consent was obtained. Patient identification and proposed procedure were verified by the physician in the pre-procedure area. Mental Status Examination: alert and oriented. Airway Examination: normal oropharyngeal airway and neck mobility. Respiratory Examination: clear to auscultation. CV Examination: normal. Prophylactic Antibiotics: The patient does not require prophylactic antibiotics. Prior Anticoagulants: The patient has taken no anticoagulant or antiplatelet agents. ASA Grade Assessment: II - A patient with mild systemic disease. After reviewing the risks and benefits, the patient was deemed in satisfactory condition to undergo the procedure. The anesthesia plan was to use monitored anesthesia care (MAC). Immediately prior to administration of medications, the patient was re-assessed for adequacy to receive sedatives. The heart rate, respiratory rate, oxygen saturations, blood pressure, adequacy of pulmonary ventilation, and response to care were monitored throughout the procedure. The physical status of the patient was re-assessed after the procedure. After I obtained informed consent, the scope was passed under direct vision. Throughout the procedure, the patient's blood pressure, pulse, and oxygen saturations were monitored continuously. The Colonoscope was introduced through the anus and advanced to the cecum, identified by appendiceal orifice and ileocecal valve. The colonoscopy was performed without difficulty. The patient tolerated the procedure well. The quality of the bowel preparation was adequate. The terminal ileum, ileocecal valve, appendiceal orifice, and rectum were photographed. Scope In: 2:22:15 PM Scope Withdrawal Time 0 hours 7 minutes 19 seconds Scope Out: 2:32:06 PM Total Procedure Duration Time 0 hours 9 minutes 51 seconds Findings: The perianal and digital rectal examinations were normal, except for poor rectal tone An area of mildly congested mucosa was found in the rectum, in the recto-sigmoid colon, in the sigmoid colon, at the splenic flexure, in the transverse colon and at the hepatic flexure. Biopsies were taken with a cold forceps for histology. Verification of patient identification for the specimen was done. Estimated blood loss was minimal. Patchy mild inflammation characterized by congestion (edema), friability and granularity was found in the terminal ileum. Biopsies were taken with a cold forceps for histology. Verification of patient identification for the specimen was done. Estimated blood loss was minimal. Impression: - Congested mucosa in the rectum, in the recto-sigmoid colon, in the sigmoid colon, at the splenic flexure, in the transverse colon and at the hepatic flexure. Biopsied. - Mild inflammation was found in the ileum secondary to ileitis. Biopsied. - Poor rectal tone Recommendation: - Discharge patient to home. - Resume previous diet. - Continue present medications. - Await pathology results. - Repeat colonoscopy in 5 years for surveillance. Procedure Code(s): --- Professional --- 27021, Colonoscopy, flexible; with biopsy, single or multiple CPT copyright 2021 [employer]. All rights reserved. The codes documented in this report are preliminary and upon spinning frame fixer review may be revised to meet current compliance requirements. Anup Jeff DO 01/11/2024 2:42:44 PM This report has been signed electronically. Number of Addenda: 0 Note Initiated On: 01/11/2024 2:19 PM
--- NOTE | 2024-01-11 14:43 | OP.CCLET_ITS ---
01/11/2024 Sherwin Zarate Re : Colonoscopy procedure for Ofelia Nguyễn Dear Elliot This procedure was performed on Thursday, January 11, 2024. My impressions and recommendations are as follows: Impressions : - Congested mucosa in the rectum, in the recto-sigmoid colon, in the sigmoid colon, at the splenic flexure, in the transverse colon and at the hepatic flexure. Biopsied. - Mild inflammation was found in the ileum secondary to ileitis. Biopsied. - Poor rectal tone Recommendations : - Discharge patient to home. - Resume previous diet. - Continue present medications. - Await pathology results. - Repeat colonoscopy in 5 years for surveillance. My findings are described in the full procedure note, which is enclosed. If I can be of further assistance, please feel free to contact me at . Sincerely, Anup Jeff, 01/11/2024 2:42:44 PM This report has been signed electronically.
[2024-01-11 14:45] VITALS: BP 117/81; BP 134/90; PULSE 69; RESP 16; O2SAT 100
[2024-01-11 14:50] VITALS: BP 127/83; BP 134/90; PULSE 67; RESP 16; TEMP 36.4; O2SAT 100
[2024-01-11 15:08] VITALS: BP 134/90
--- NOTE | 2024-01-11 15:32 | PCM.POSTANE2 ---
Anesthesia Postop Eval I Sum Postop Eval Completion status Anesthesia document: Postop Eval 1 completed: Yes Anesthesia Postop Eval I Summary Anesthesia Postop Eval I Summary: Anesthesia Postop Eval I: Assessment Summary Airway patent Yes 01/11/24 14:41 [email or web address] Spontaneous unlabored Yes 01/11/24 14:41 [email or web address] respirations Mental status Asleep 01/11/24 14:41 [email or web address] nausea No 01/11/24 14:41 [email or web address] Vomiting No 01/11/24 14:41 [email or web address] Anesthesia Postop Eval I: Fluid Summary Crystalloid volume administer 800 01/11/24 14:41 [email or web address] (ml) Colloids volume administered ( ml) Blood Product volume administered (ml) Total IV fluid infused 800 01/11/24 14:41 [email or web address] Anesthesia Postop Eval I: Summary Notes Anesthesia Complication No 01/11/24 14:41 [email or web address] Anesthesia Complication Comment: Post-operative progress note Anesthesia: Postop Eval II Evaluation Mental status: Awake and Calm Pain Level: 0 nausea: No Vomiting: No Complications Anesthesia Complication: No
[2024-01-11 16:29] LABS: Absolute Lymphocyte Count 1.11 X10^3/uL (0.83-4.51); Absolute Neutrophil Count 6.2 X10^3/uL (2.0-7.7); Basophil# 0.02 X10^3/uL; Basophil% 0.3 % (0-1); Eosinophil# 0.05 X10^3/uL; Eosinophils% 0.7 % (0-5); Hematocrit 38.5 % (37-47); Hemoglobin 12.3 g/dL (12.0-15.0); Lymphocyte # 1.11 X10^3/ul (0.83-4.51); Lymphocyte % 14.5 % (19-41); Mean Corp Hgb Conc 31.9 g/dL (32-36); Mean Corpuscular Hgb 26.7 pg (27.0-32.0); Mean Corpuscular Volume 83.7 fL (81-99); Mean Platelet Vol. 9.8 fl (6.2-12.0); Monocyte# 0.19 X10^3/uL; Monocyte% 2.5 % (0-10); NRBC Flagged by Analyzer 0 % (0-5); Neutrophil # 6.23 X10^3/uL (2.7-7.7); Neutrophil % 81.6 % (47-70); Platelet Count 312 K/mm3 (150-450); RBC Distribution Width CV 13.2 % (11.6-14.6); RBC Distribution Width SD 40.2 fl (35.1-43.9); White Blood Count 7.6 K/mm3 (4.4-11.0)
[2024-01-11 16:54] LABS: Color, Urine Brown (Yellow); Glucose, Dipstick Normal (Normal); Ketone-Dipstick 5 mg/dl (Negative); Leukocyte Esterase-Dipstick 25 /ul (Negative); Nitrite-Dipstick Positive (Negative); Occult Blood-Urine 250 /ul (Negative); Protein-Dipstick 100 mg/dl (Negative); Urine Bilirubin Dipstick Negative (Negative); Urine Clarity Turbid (Clear); Urine Urobilinogen Normal (Normal)
[2024-01-11 17:03] LABS: Red Blood Cells-Urine > 100 SEEN /hpf (0-5); Squamous Epithelial Cells - UA 5-10 SEEN /hpf (5-10)
[2024-01-11 17:04] LABS: Bacteria 2+ /hpf (None Seen); Mucous, Urine 3+ /hpf (<or=2+); White Blood Cells 5-10 SEEN /hpf (0-5)
[2024-01-11 17:05] LABS: Erythrocyte Sedimentation Rate 21 mm/hr (0-30)
[2024-01-11 17:09] LABS: CRP 4.18 mg/L (0.0-3.0); LDH 169 U/L (84-246)
[2024-01-15 10:42] LABS: ACCA 12 units (0-90); ALCA 10 units (0-60); AMCA 44 units (0-100); Albumin 3.5 g/dL (2.9-4.4); Alpha-1-Globulins 0.2 g/dL (0.0-0.4); Alpha-2-Globulins 0.8 g/dL (0.4-1.0); Chromogranin A 21.1 ng/mL (0.0-101.8); Cytoplasmic Ab (C-ANCA) <1:20 titer (Neg:<1:20); Endomysial Antibody IgA Negative (Negative); Gamma Globulin 1.2 g/dL (0.4-1.8); Gastrin, Serum 37 pg/mL (0-115); IMMUNOFIXATION RESULT,S Comment: (.); Immunoglobulin A 156 mg/dL (87-352); Immunoglobulin G 1273 mg/dL (586-1602); Immunoglobulin M 120 mg/dL (26-217); PROEL- TOTAL PROTEIN 6.8 g/dL (6.0-8.5); Perinuclear Ab (P-ANCA) <1:20 titer (Neg:<1:20); QNTFERON TB Mitogen Value > 10.00 IU/mL (.); QNTFERON TB Nil Value 0 IU/mL (.); QNTFERON TB1+ Ag Value 0 IU/mL (.); QNTFERON TB2+ Ag Value 0 IU/mL (.); QNTIFERON TB Positive Criteria Negative (Negative); gASCA 5 units (0-50); t-Transglutaminase IgA <2 U/mL (0-3)
[2024-01-18 11:59] LABS: Anti-Centromere B Ab <0.2 AI (0.0-0.9); Anti-Chromatin <0.2 AI (0.0-0.9); Anti-Jo <0.2 AI (0.0-0.9); Anti-Scleroderma-70 AB <0.2 AI (0.0-0.9); Anti-dsDNA Ab 4 IU/mL (0-9); Beef <0.10 kU/L (Class 0); Chocolate <0.10 kU/L (Class 0); Codfish <0.10 kU/L (Class 0); Corn <0.10 kU/L (Class 0); Egg, Whole <0.10 kU/L (Class 0); Milk (Cow) <0.10 kU/L (Class 0); Mussels <0.10 kU/L (Class 0); Peanut <0.10 kU/L (Class 0); Pork <0.10 kU/L (Class 0); RNP Ab <0.2 AI (0.0-0.9); SJOGREN'S Anti-SS-A test < 0.2 AI (0.0-0.9); SJOGREN'S Anti-SS-B test < 0.2 AI (0.0-0.9); Salmon <0.10 kU/L (Class 0); Shrimp 0.23 kU/L (Class 0/I); Smith Ab <0.2 AI (0.0-0.9); Soybean <0.10 kU/L (Class 0); Tuna <0.10 kU/L (Class 0); Wheat <0.10 kU/L (Class 0)
== END 2024-01-11 15:42 | disposition home or self-care (01) ==
LOC: EN 12:00 → AC 12:02
PROVIDERS: PCP Family Medicine; Referring Provider Family Medicine; Visit Provider Internal Medicine Gastroenterology
PROC: 0DJD8ZZ Inspection of Lower Intestinal Tract, Via Natural or Artificial Opening Endoscopic (ICD-10-PCS; CPT 45378; principal; 2024-01-11 13:10)
DX: R19.7 Diarrhea, unspecified (principal); Z90.49 Acquired absence of other specified parts of digestive tract; K22.89 Other specified disease of esophagus; K62.89 Other specified diseases of anus and rectum; K63.89 Other specified diseases of intestine; E03.9 Hypothyroidism, unspecified; Z79.899 Other long term (current) drug therapy; F90.9 Attention-deficit hyperactivity disorder, unspecified type; R10.9 Unspecified abdominal pain; G89.29 Other chronic pain
CPT/HCPCS: 43239; 45380; 36415; 81001; 82784; 82941; 83516; 83615; 84165; 84439; 84443; 85025; 85652; 86003; 86005; 86036; 86140; 86225; 86235; 86255; 86256; 86316; 86334; 86480; 86671; 87086; 87088; 88305; J7120; J2405

== ENCOUNTER → 2024-01-21 | Outpatient (CLI) | payer MEDICAID, SELFPAY ==
--- NOTE | 2024-01-21 07:55 | NM_ITS ---
CLINICAL: 28-year-old female with history of chronic nausea. SEMI-SOLID PHASE 99m Tc SULFUR COLLOID GASTRIC EMPTYING STUDY COMPARISON: None available FINDINGS: The patient was administered 1.2 mCi of 99m Tc sulfur colloid mixed with oatmeal and consumed per os. Image acquisitions in the anterior-posterior projections were obtained for 60 minutes. There is prompt visualization of the stomach. There is no gastroesophageal reflux identified. The T ? raw data emptying was calculated to be 40.16 minutes, (Normal: 12-56 minutes). NM/Gastric Emptying Study IMPRESSION: 1. NORMAL 99m Tc sulfur colloid semi-solid phase (oatmeal) gastric emptying imaging examination. A. There is normal and preserved semi-solid phase gastric emptying compared to normal controls. (Annie et al, J Nucl Med Tech 38: 186, 2010). Electronically Signed: Fabian Alcala DO at 11:33 EDT ,
== END | disposition home or self-care (01) ==
LOC: NM 07:54
PROVIDERS: PCP Family Medicine; Referring Provider Internal Medicine Gastroenterology; Visit Provider Internal Medicine Gastroenterology
DX: R19.7 Diarrhea, unspecified (principal)
CPT/HCPCS: 78264; A9541